=== PATIENT | female | born 1955 | race Caucasian/White ===

== ENCOUNTER → 2020-09-07 | Outpatient (CLI) | payer MEDICARE | LOC: KOH-I 13:30 | DX: Z87.891 Personal history of nicotine dependence (principal); R91.8 Other nonspecific abnormal finding of lung field | CPT/HCPCS: 71271 ==

== ENCOUNTER → 2021-11-01 | Outpatient (CLI) | payer MEDICARE | LOC: RAD 15:28 | DX: M25.551 Pain in right hip (principal); M16.11 Unilateral primary osteoarthritis, right hip | CPT/HCPCS: 73502 ==

== ENCOUNTER → 2022-01-16 | Outpatient (CLI) | payer MEDICARE ==
[~2022-01-16] MED LIST: BIOTIN2500 MCG PO; CELEBREX 200MG200 MG PO; CENTRUM SILVER1 EAC4 PO; GOLO; LIPITOR20 MG PO; MIRAPEX0.5 MG PO; MORPHINE; NEURONTIN600 MG PO; OMEGA; PROTONIX 40 MG40 M1 PO; SLEEP AID; TYLENOL EXTRA500 MG PO; VITAMIN D3125 MCG PO; WELLBUTRIN XL300 M1 PO
[2022-01-16 11:48] LABS: HEMOGLOBIN 13.3 gm/dl (12.3-15.3); RED BLOOD COUNT 4.21 M/UL (4.00-5.10); WHITE BLOOD COUNT 7.4 K/UL (4.5-11.0)
[2022-01-16 12:05] LABS: BUN/CREATININE RATIO 17 (0-10)
== END ==
LOC: OPSV2 10:58 → EDSTATUS 11:00 → OPSV2 12:30
PROVIDERS: Orthopaedic Surgery
DX: Z01.818 Encounter for other preprocedural examination (principal); M87.9 Osteonecrosis, unspecified
CPT/HCPCS: 71046; 80048; 83036; 85027; 85610; 85652; 85730; 86140; 93005

== ENCOUNTER → 2022-02-14 | Outpatient (CLI) | payer MEDICARE ==
[~2022-02-14] MED LIST changes: +BUPIVACAINE; +CYCLOBENZAPRINE5 MG PO; +ELIQUIS 2.5 MG2.5 MG PO; -GOLO; +GOLO PO; -OMEGA; +OMEGA-3 1,0001 EACH PO; +PERCOCET 7.5-31 EACH PO; -SLEEP AID; +SLEEP AID25 M1 PO; +ZOFRAN 4 MG TAB4 MG PO
[2022-02-14 14:19] LABS: BUN/CREATININE RATIO 13 (0-10)
== END ==
LOC: LAB 13:21
PROVIDERS: Orthopaedic Surgery
DX: Z01.812 Encounter for preprocedural laboratory examination (principal)
CPT/HCPCS: 36415; 80048; 86850; 86900; 86901

== ENCOUNTER 2022-02-15 05:57 | Day surgery (SDC) | payer MEDICARE ==
[~2022-02-15] VITALS: Ht 157.5 cm; Wt 56.7 kg
[~2022-02-15 05:57] MED LIST changes: -BUPIVACAINE; -MORPHINE
[2022-02-15] MEDS ORDERED: MORPHINE (12:41)
[2022-02-15] MEDS ORDERED: BUPIVACAINE (12:41)
[2022-02-16 03:13] LABS: HEMOGLOBIN 8.8 gm/dl (12.3-15.3); RED BLOOD COUNT 2.76 M/UL (4.00-5.10); WHITE BLOOD COUNT 13.3 K/UL (4.5-11.0)
[2022-02-16 03:42] LABS: BUN/CREATININE RATIO 11 (0-10)
--- NOTE | 2022-02-16 13:04 | NUR ---
PT HOME HEALTH STILL BEING SET UP. PT AND PT WANTING TO LEAVE RIGHT NOW. FAVIO JOYNER, STATED THAT SHE COULD CALL THEM AT HOME TO GIVE DETAILS ABOUT HOMEHEALTH WHENEVER PROFESSIONAL ACCEPTS HER. PT EDUCATED ON DRESSING AND MEDS
== END 2022-02-16 13:02 | disposition home health service (06) ==
LOC: OR 05:57 → M/S 12:19 → OR 02-16 13:02
PROVIDERS: Orthopaedic Surgery
DX: M16.11 Unilateral primary osteoarthritis, right hip (principal); M25.751 Osteophyte, right hip; M17.12 Unilateral primary osteoarthritis, left knee; E78.5 Hyperlipidemia, unspecified; F17.210 Nicotine dependence, cigarettes, uncomplicated
CPT/HCPCS: 73501; 73502; 76000; 80048; 85027; 97116-GP-CQ; 97161; 97166; 97530; 97530-GP-CQ; 97535; C1713; C1776; J0690; J1100; J1170; J1885; J2001; J2274; J2405; J2704; J3010; J3370; J7050

== ENCOUNTER 2022-02-18 16:11 | Emergency (ER) | payer MEDICARE ==
[~2022-02-18 16:11] MED LIST changes: +BUPIVACAINE; +MORPHINE
[2022-02-18 20:11] LABS: BUN/CREATININE RATIO 12 (0-10)
[2022-02-18 20:23] LABS: HEMOGLOBIN 6.9 gm/dl (12.3-15.3); RED BLOOD COUNT 2.18 M/UL (4.00-5.10); WHITE BLOOD COUNT 9.1 K/UL (4.5-11.0)
[2022-02-19 02:05] LABS: HEMOGLOBIN 7.7 gm/dl (12.3-15.3)
== END 2022-02-19 02:39 | disposition home or self-care (01) ==
LOC: ER1 16:11
PROVIDERS: Physician Assistant Medical
DX: S70.01XA Contusion of right hip, initial encounter (principal); F17.210 Nicotine dependence, cigarettes, uncomplicated; Z96.641 Presence of right artificial hip joint; Z79.01 Long term (current) use of anticoagulants; W19.XXXA Unspecified fall, initial encounter
CPT/HCPCS: 36430; 73502; 73552; 73701; 80053; 85014; 85018; 85025; 85610; 85730; 86850; 86900; 86901; 86920; 99284; P9016; Q9967